=== PATIENT | female | born 1975 | race Two or more races ===

== ENCOUNTER 2022-06-09 14:10 | Emergency (ER) | payer OTHER ==
[~2022-06-09] VITALS: Ht 157.5 cm; Wt 95.6 kg
[2022-06-09 15:50] VITALS: BP 143/99
[2022-06-09] MEDS ORDERED: ONDANSETRON ODT 4 MG TAB PO ONE (16:00)
[2022-06-09] MEDS ORDERED: KETOROLAC TROMETH 60MG/2ML VIAL IM ONE (16:00)
[2022-06-09] MEDS ORDERED: CYCL-837 PO (16:18)
== END 2022-06-09 18:59 | disposition home or self-care (01) ==
LOC: ER 14:10
DX: G44.209 Tension-type headache, unspecified, not intractable (principal); I10 Essential (primary) hypertension; E11.9 Type 2 diabetes mellitus without complications
CPT/HCPCS: 96372; 99283; J1885; Q0162